=== PATIENT | female | born 1955 ===

== ENCOUNTER 2016-10-01 12:49 | Emergency (ER) | payer SELFPAY ==
--- NOTE | 2016-10-01 13:15 | CPEKG ---
Heart Rate: 89 RR Interval: 674 P-R Interval: 184 QRSD Interval: 68 QT Interval: 352 QTC Interval: 429 P [place]: 18 QRS [place]: -30 T Wave [place]: 44 EKG Severity - ABNORMAL ECG - EKG Impression: SINUS RHYTHM EKG Impression: LVH WITH SECONDARY REPOLARIZATION ABNORMALITY EKG Impression: PROBABLE INFERIOR INFARCT, AGE INDETERMINATE Electronically Signed By: Dee Walker 01-Oct-2016 20:48:46
--- NOTE | 2016-10-01 13:30 | EDPHY ---
H & P Time Seen by Provider: 10/01/16 13:26 HPI/ROS: CHIEF COMPLAINT: Syncopal episode. HISTORY OF PRESENT ILLNESS: This patient is a 61 year old female with history of diabetes and prior CABG complaining of multiple syncopal episodes this morning prior to arrival. She was lying the the backseat of the car in a semi-reclined position following an eleven hour car ride, and passed out three or four times. She states she doesn' t remember exactly what happened. Her and son were in the front, but she couldn't get their attention and had several syncopal episodes. Her head, neck, chest, and shoulders are in a lot of pain chronically. She endorses feeling dizzy before these episodes. This has happened before a few times in the last few months. She did see a primary care provider in [place], but states she did nor receive a satisfactory workup at that time. Her at bedside states that her blood sugar levels have been fluctuating lately even when she takes her medication. No fever, chills, shortness of breath, vomiting, or other associated symptoms. REVIEW OF SYSTEMS: A 10 point review of systems was performed and is negative with the exception of the elements mentioned in the history of present illness. Past Medical/Surgical History: CABG, thyroid mass, diabetes mellitus Social History: Originally from [place], traveling, homeless. . at bedside. Smoking Status: Never smoked Physical Exam: General Appearance: Alert, talkative Eyes: Pupils equal and round, no conjunctival pallor ENT, Mouth: Mucous membranes moist Neck: Normal inspection Respiratory: Lungs are clear to auscultation Cardiovascular: Regular rate and rhythm Gastrointestinal: Epigastric tenderness. Abdomen is soft Neurological: A&O, CN II-XII intact, motor 5/5, sensory intact to light touch, normal gait Skin: Warm and dry, no rash Extremities: Nontender, no pedal edema Psychiatric: Mood and affect normal Constitutional: Initial Vital Signs Temperature (C) 36.8 C 10/01/16 13:01 Heart Rate 96 10/01/16 13:01 Respiratory Rate 18 10/01/16 13:01 Blood Pressure 150/80 H 10/01/16 13:01 O2 Sat (%) 96 10/01/16 13:01 O2 Delivery Mode Room Air Allergies/Adverse Reactions: ciprofloxacin [From Cipro] Allergy (Verified 10/01/16 12:58) NSAIDS (Non-Steroidal Anti-Inflamma Allergy (Verified 10/01/16 12:58) Penicillins Allergy (Verified 10/01/16 12:58) prochlorperazine [From Compazine] Allergy (Verified 10/01/16 12:58) ivp dye Allergy (Uncoded 10/01/16 12:58) Home Medications: Medication Instructions Recorded Digox 10/01/16 GABAPENTIN 10/01/16 Isosorbide Dinitrate 10/01/16 Lantus Solostar 10/01/16 Regular Insulin 10/01/16 Taztia Xt 10/01/16 Tylenol #4 (RX) 10/01/16 Zanaflex 2MG (*) 10/01/16 Medical Decision Making - Diagnostics EKG Interpretation: EKG interpreted by me reveals sinus rhythm, rate 89, LVH. ED Course/Re-evaluation: This pt presents with multiple c/o. Unclear if she had recurrent syncopal episodes while lying supine or simply fell asleep. Pt more concerned about ongoing pain and telling me about the ineptitude of all of her prior MD's. I redirected her focus and suggested Tylenol for her pain. The patient is disgruntled about the offer of Tylenol. I told her that we are unable to give her narcotics for her pain at this time. Refused Lidocaine patch and other non- narcotic options. "It's bullshit". "I've been on your side of the fence lady". I told her that we would assess her for the fainting episodes. This pt left AMA prior to full evaluation. I was unable to give her lab results. Differential Diagnosis: Differential diagnosis includes though is not limited to cardiac dysrhythmia, CVA, TIA, GI bleed, sepsis, hypoglycemia. - Data Points Laboratory Results: Laboratory Results 10/01/16 13:15 10/01/16 13:15 Medications Given: Discontinued Medications Al Hydroxide/Mg Hydroxide (Maalox Susp) 30 ml PO ONCE ONE Stop: 10/01/16 13:44 Last Admin: 10/01/16 14:23 Dose: Not Given Hyoscyamine Sulfate (Levsin, Hyomax-Sl) 0.25 mg PO ONCE ONE Stop: 10/01/16 13:44 Last Admin: 10/01/16 14:23 Dose: Not Given Lidocaine (Lidocaine 2% Viscous) 15 ml PO ONCE ONE Stop: 10/01/16 13:44 Last Admin: 10/01/16 14:20 Dose: 15 ml Departure - Departure Disposition: Against Medical Advice Clinical Impression: Syncope Qualifiers: Syncope type: unspecified Qualified Code(s): R55 - Syncope and collapse Condition: Good Instructions: Syncope (ED) Additional Instructions: 1. Follow up with a supervisor wrapping room for further evaluation of your syncopal episodes. 2. Return to the emergency department for repeat episodes of fainting, severe headache, chest pain, shortness of breath, or other worsening of condition. Referrals: Elis Schrader MD [Medical Doctor] - As per Instructions Report Scribed for: Dee Walker Report Scribed by: She Johnson Date of Report: 10/01/16 Time of Report: 13:29 Physician Review and Approval Statement: 10/01/16 13:30 Portions of this note were transcribed by a behavioral medical director. I personally performed a history, physical exam, medical decision making, and confirmed accuracy of information the transcribed note.
[2016-10-01 13:38] LABS: % IMMATURE GRANULYOCYTES 0.4 % (0.0-1.1); ABSOLUTE IMMATURE GRANULOCYTES 0.05 10^3/uL (0.00-0.10); ADD DIFF? NO; ADD MORPH? NO; ADD SCAN? NO; ATYPICAL LYMPHOCYTE FLAG 0 (0-99); FRAGMENT RBC FLAG 0 (0-99); HEMATOCRIT 44.2 % (38.0-47.0); HEMOGLOBIN 15.5 g/dL (12.6-16.3); LEFT SHIFT FLG 0 (0-99); LIPEMIA HEMOLYSIS FLAG 90 (0-99); MEAN CELL HEMOGLOBIN 29.6 pg (27.9-34.1); MEAN CELL HEMOGLOBIN CONCENTR. 35.1 g/dL (32.4-36.7); MEAN CELL VOLUME 84.4 fL (81.5-99.8); PLATELET CLUMPS FLAG 10 (0-99); PLATELET COUNT 330 10^3/uL (150-400); RED BLOOD CELL COUNT 5.24 10^6/uL (4.18-5.33); RED CELL DISTRIBUTION WIDTH 12.1 % (11.5-15.2)
[2016-10-01] MEDS ORDERED: MAG HYDROX/AL HYDROX/SIMETH 30 ML UDCUP PO ONE (13:43)
[2016-10-01] MEDS ORDERED: HYOSCYAMINE SULFATE 0.125 MG TAB PO ONE (13:43)
[2016-10-01] MEDS ORDERED: LIDOCAINE 2% VISCOUS 15 ML UDCUP PO ONE (13:43)
[2016-10-01 13:45] LABS: ANION GAP 15 mEq/L (8-16); CALCIUM 10.1 mg/dL (8.5-10.4); CARBON DIOXIDE 20 mEq/l (22-31); CHLORIDE 100 mEq/L (97-110); CREATININE 0.6 mg/dL (0.6-1.0); GLOMERULAR FILTRATION RATE > 60; GLUCOSE 334 mg/dL (70-100); POTASSIUM 4.4 mEq/L (3.5-5.2); SODIUM 135 mEq/L (134-144)
[2016-10-01 13:56] LABS: TROPONIN I < 0.012 ng/mL (0.000-0.034)
[2016-10-01] MEDS ORDERED: LIDOCAINE 5% 1 EA PATCH TD ONE (14:21)
[2016-10-01] MEDS ORDERED: ACETAMINOPHEN 325 MG TAB PO ONE (14:21)
[2016-10-01 14:26] VITALS: BP 135/82; PULSE 81; RESP 16; TEMP 96.8; O2SAT 98
[2016-10-01] MEDS ORDERED: PATCH REMOVAL 1 EA PATCH TD SCH (21:00)
== END 2016-10-01 14:33 | disposition left against medical advice (07) ==
DX: R55 Syncope and collapse (principal); E11.9 Type 2 diabetes mellitus without complications; Z79.4 Long term (current) use of insulin; Z95.1 Presence of aortocoronary bypass graft